=== PATIENT | female | born 1965 | race Caucasian/White ===

== ENCOUNTER 2020-04-19 07:45 | Day surgery (SDC) | payer OTHER, SELFPAY ==
[~2020-04-19] VITALS: Ht 152.4 cm; Wt 74.8 kg
[2020-04-19] MEDS ORDERED: MIDAZOLAM 2 MG/2 ML VIAL ONE (11:26)
[2020-04-19] MEDS ORDERED: fentaNYL citrate 0.05 MG/ML VIAL ONE (11:26)
[2020-04-19] MEDS ORDERED: LIDOCAINE 2% 100 MG/5 ML UJET TP ONE (11:26)
[2020-04-19] MEDS ORDERED: MIDAZOLAM 2 MG/2 ML VIAL IVP ONE (12:45)
[2020-04-19] MEDS ORDERED: fentaNYL citrate 0.05 MG/ML VIAL IVP ONE (12:45)
== END 2020-04-19 13:00 | disposition home or self-care (01) ==
LOC: MDS 07:45 → MFCC 07:48 → MDS 13:00
PROVIDERS: ATTEND Internal Medicine Gastroenterology
DX: R19.7 Diarrhea, unspecified (principal); K29.70 Gastritis, unspecified, without bleeding; K22.10 Ulcer of esophagus without bleeding; J45.909 Unspecified asthma, uncomplicated; G43.909 Migraine, unspecified, not intractable, without status migrainosus; R10.12 Left upper quadrant pain; E66.9 Obesity, unspecified; Z98.51 Tubal ligation status; Z88.1 Allergy status to other antibiotic agents; Z79.899 Other long term (current) drug therapy
CPT/HCPCS: 36415; 43239; 45380; 86677; J2250; J3010; U0003; 88305

== ENCOUNTER 2022-11-29 15:49 | Emergency (ER) | payer OTHER ==
[~2022-11-29] VITALS: Ht 149.9 cm; Wt 91.6 kg
[2022-11-29 16:07] VITALS: BP 119/67
--- NOTE | 2022-11-29 18:17 | NUR ---
DR SALEH ATTEMPTED TO EVALUATE PT, NOT FOUND IN LOBBY/OUTSIDE.
--- NOTE | 2022-11-29 18:17 | NUR ---
PATIENT LEFT WITHOUT BEING SEEN BY DR. DR SALEH. NO FURTHER CARE PROVIDED FOR PATIENT.
[2022-11-29] MEDS ORDERED: IBUPROFEN 600 MG TAB PO ONE (19:00)
[2022-11-29] MEDS ORDERED: HYDROcodone/APAP 5/325 MG 1 TAB TAB PO ONE (19:00)
== END 2022-11-29 18:17 | disposition left against medical advice (07) ==
LOC: MED 15:49
DX: M79.661 Pain in right lower leg (principal); Z53.21 Procedure and treatment not carried out due to patient leaving prior to being seen by health care provider